=== PATIENT | male | born 1945 | race Caucasian/White ===

== ENCOUNTER 2017-04-27 19:23 | Emergency (ER) | payer MEDICARE, BC ==
[2017-04-27] MEDS ORDERED: Sodium Chloride 0.9% 1,000 ML IV ONE (20:45)
[2017-04-27] MEDS ORDERED: Sodium Chloride 0.9% 500 ML IV ONE (20:45)
--- NOTE | 2017-04-27 20:57 | EDM.PDOC ---
ED HPI GENERAL MEDICAL PROBLEM - General Chief Complaint: Neuro Symptoms/Deficits Stated Complaint: NAUSEA, syncope Time Seen by Provider: 04/27/17 20:00 Source of Information: Reports: Patient History Limitations: Reports: No Limitations - History of Present Illness INITIAL COMMENTS - FREE TEXT/NARRATIVE: This is a 71yo M who had been out fishing for most of the day in the hot weather without a hat. He had half a cup of water prior to fishing and during the trip had 3 beers. He returned and was eating dinner and almost fully done when he felt very lightheaded and almost passed out. Patient denies any loss of consciousness or other issues. He does have a history of heart issues and stents. Onset: Sudden Duration: Resolved Prior to Arrival Location: Reports: Generalized Severity: Mild Improves with: Reports: None Worsens with: Reports: None - Related Data Allergies Allergy/AdvReac Type Severity Reaction Status Date / Time No Known Allergies Allergy Verified 04/27/17 20:07 Home Meds: Home Meds Aspirin 81 mg PO DAILY 04/27/17 [History] Hydrochlorothiazide 25 mg PO DAILY 04/27/17 [History] Lisinopril 20 mg PO DAILY 04/27/17 [History] Simvastatin [Zocor] 40 mg PO DAILY 04/27/17 [History] Past Medical History Respiratory History: Reports: Asthma Gastrointestinal History: Reports: Other (See Below) Other Gastrointestinal History: hx gastric reglux - Infectious Disease History Infectious Disease History: Reports: Chicken Pox, Measles, Mumps, Rubella - Past Surgical History Respiratory Surgical History: Reports: None GI Surgical History: Reports: None Musculoskeletal Surgical History: Reports: Arthroscopic Knee, Hip Replacement Social & Family History - Family History Family Medical History: Noncontributory ED ROS GENERAL - Review of Systems Review Of Systems: ROS reveals no pertinent complaints other than HPI. ED EXAM, GENERAL - Physical Exam Exam: See Below Exam Limited By: No Limitations General Appearance: Alert, WD/WN, No Apparent Distress Eye Exam: Bilateral Eye: EOMI, PERRL Ears: Normal External Exam Nose: Normal Inspection Throat/Mouth: Normal Inspection Head: Atraumatic, Normocephalic Neck: Normal Inspection Respiratory/Chest: No Respiratory Distress, Lungs Clear Cardiovascular: Normal Peripheral Pulses, Regular Rate, Rhythm Peripheral Pulses: 2+: Dorsalis Pedis (L), Dorsalis Pedis (R) GI/Abdominal: Normal Bowel Sounds, Soft, Non-Tender Extremities: Normal Inspection Neurological: Alert, Oriented, CN II-XII Intact Psychiatric: Normal Affect, Normal Mood Skin Exam: Warm, Dry, Intact, Normal Color, No Rash Course - Vital Signs Last Recorded V/S: Last Vital Signs Temp 37.0 C 04/27/17 21:05 Pulse 71 04/27/17 21:05 Resp 16 04/27/17 21:05 BP 145/74 H 04/27/17 21:05 Pulse Ox 96 04/27/17 21:05 - Orders/Labs/Meds Orders: Active Orders 24 hr Category Date Time Status Cardiac Monitoring [RC] .As Directed Care 04/27/17 22:50 Active EKG Documentation Completion [RC] ASDIRECTED Care 04/27/17 19:55 Active EKG 12 Lead [EK] Stat Ther 04/27/17 19:55 Ordered Labs: Laboratory Tests 04/27/17 04/27/17 04/27/17 Range/Units 20:00 20:00 20:46 WBC 8.9 (4.0-11.0) K/uL RBC 4.95 (4.50-6.50) M/uL Hgb 15.5 (13.0-18.0) g/dL Hct 44.4 (40.0-54.0) % MCV 90 (76-96) fL MCH 31.3 (27.0-32.0) pg MCHC 34.9 (31.0-35.0) g/dL RDW 12.5 (11.0-16.0) % Plt Count 229 (150-400) K/uL MPV 10.0 (6.0-10.0) fL Neut % (Auto) 76.5 H (45.0-70.0) % Lymph % (Auto) 17.3 L (20.0-40.0) % [place] % (Auto) 5.5 (3.0-10.0) % Eos % (Auto) 0.5 L (1.0-5.0) % Baso % (Auto) 0.2 (0.0-0.5) % Neut # (Auto) 6.79 (2.00-7.50) K/uL Lymph # (Auto) 1.54 (1.50-4.00) K/uL [place] # (Auto) 0.49 (0.20-0.80) K/uL Eos # (Auto) 0.04 (0.04-0.40) K/uL Baso # (Auto) 0.02 (0.02-0.10) K/uL Sodium 139 (136-145) mmol/L Potassium 3.7 (3.5-5.1) mmol/L Chloride 100 (98-107) mmol/L Carbon Dioxide 29.1 (21.0-32.0) mmol/L Anion Gap 13.6 (5.0-15.0) mmol/L BUN 20 (8-26) mg/dL Creatinine 1.13 (0.70-1.30) mg/dL Est Cr Clr Drug Dosing TNP Estimated GFR (MDRD) > 60 (>60) MLS/MIN BUN/Creatinine Ratio 17.7 (6-25) Glucose 109 H (74-100) mg/dL Calcium 9.2 (8.5-10.1) mg/dL Troponin I < 0.017 (0.000-0.060) ng/mL TSH, Ultra Sensitive 2.883 (0.358-3.740) uIU/mL Urine Color Yellow Urine Appearance Clear (CLEAR) Urine pH 6.0 (5.0-8.0) Ur Specific [place] 1.025 (1.003-1.030) Urine Protein Negative (NEGATIVE) mg/dL Urine Glucose (UA) Negative (NEGATIVE) mg/dL Urine Ketones Negative (NEGATIVE) mg/dL Urine Occult Blood Negative (NEGATIVE) Urine Nitrite Negative (NEGATIVE) Urine Bilirubin Negative (NEGATIVE) Urine Urobilinogen 0.2 (0.2-1.0) E.U./dL Ur Leukocyte Esterase Trace H (NEGATIVE) Urine RBC Not seen /HPF Urine WBC 10-20 H /HPF Ur Squamous Epith Cells Occasional /HPF Urine Bacteria Few /HPF Meds: Medications Discontinued Medications Generic Name Dose Route Start Last Admin Trade Name Freq PRN Reason Stop Dose Admin Sodium Chloride 1,000 mls @ 999 mls/hr 04/27/17 20:45 04/27/17 21:09 Normal Saline IV 04/27/17 21:45 999 mls/hr .BOLUS ONE Administration Departure - Departure Time of Disposition: 23:00 Disposition: Home, Self-Care 01 Condition: Good Clinical Impression: Dehydration Instructions: Nausea, Adult, Dehydration, Adult, [id number] Referrals: PCP,None [Primary Care Provider] - Forms: ED Department Discharge Care Plan Goals: Drink plenty of fluids, staying away from alcohol and coffee to prevent further dehydration. Return if problems redevelop. Rest and can go fishing tomorrow but take water with. - Problem List Review Problem List Initiated/Reviewed/Updated: Yes - My Orders Last 24 Hours: My Active Orders 04/27/17 19:55 EKG Documentation Completion [RC] ASDIRECTED EKG 12 Lead [EK] Stat 04/27/17 22:50 Cardiac Monitoring [RC] .As Directed - Assessment/Plan Last 24 Hours: My Active Orders 04/27/17 19:55 EKG Documentation Completion [RC] ASDIRECTED EKG 12 Lead [EK] Stat 04/27/17 22:50 Cardiac Monitoring [RC] .As Directed Plan: Counseled on very close monitoring of symptoms and dehydration. Patient to f/u if symptoms return as needed. Patient agrees on f/u with PCP at home and f/u if any symptoms return.
[2017-04-27 22:58] VITALS: BP 145/74
== END 2017-04-27 21:30 | disposition home or self-care (01) ==
LOC: LB.ED 19:23
DX: E86.0 Dehydration (principal); J45.909 Unspecified asthma, uncomplicated; K21.9 Gastro-esophageal reflux disease without esophagitis; Z79.82 Long term (current) use of aspirin; Z96.649 Presence of unspecified artificial hip joint
CPT/HCPCS: 36415; 80048; 81001; 84443; 84484; 85025; 93005; 96360; 99284; A0425; A0429; J7040; 99283